=== PATIENT | male | born 1980 | race Caucasian/White ===

== ENCOUNTER → 2016-04-13 | Outpatient (CLI) | payer OTHER ==
--- NOTE | 2016-04-13 15:24 | KCIC ---
PROCEDURE Two-view chest dated 04/13/2016. HISTORY Try cos for 5 days. TECHNIQUE PA and lateral views obtained. COMPARISON None. FINDINGS Heart and mediastinal contours within normal limits. Lungs are clear without focal consolidation. Vascular interstitium within normal limits. No pleural effusion or pneumothorax. IMPRESSION No acute radiographic abnormality. Electronically signed by: Lanre Betancur (Apr 13, 2016 15:23:11)
== END | disposition home or self-care (01) ==
LOC: KCIC 14:46
PROVIDERS: ATTEND Physician Assistant Medical
DX: R05 Cough (principal); F17.200 Nicotine dependence, unspecified, uncomplicated
CPT/HCPCS: 71020